=== PATIENT | female | born 1995 | race Caucasian/White ===

== ENCOUNTER 2019-06-20 00:47 | Emergency (ER) | payer OTHER ==
[~2019-06-20] VITALS: Ht 154.9 cm; Wt 61.4 kg
[2019-06-20 00:58] VITALS: BP 136/94
--- NOTE | 2019-06-20 01:15 | NUR ---
pt triaged and assessed in ambulance bay and isolated to vehicle with instructions on self isolation until further notice.
[2019-06-20] MEDS ORDERED: ibuprofen 200mg tablet PO ONE (01:45)
--- NOTE | 2019-06-20 02:29 | NUR ---
attempted to call pt to inform her of flu result of influenza a positive left message for patient to call back to the emergency department.
[2019-06-20] MEDS ORDERED: TAM75C PO (03:27)
== END 2019-06-20 02:00 | disposition home or self-care (01) ==
LOC: ER 00:48
DX: J06.9 Acute upper respiratory infection, unspecified (principal); J11.1 Influenza due to unidentified influenza virus with other respiratory manifestations; Z72.89 Other problems related to lifestyle
CPT/HCPCS: 87502; 87503; 99283